=== PATIENT | male | born 1945 | race Hispanic/Latino ===

== ENCOUNTER 2025-02-10 09:23 | Outpatient (CLI) | payer MEDICARE | END 2025-02-10 09:24 | disposition home or self-care (01) | LOC: CSHSLEEP 09:23 | PROVIDERS: ATTEND Family Medicine | DX: G47.33 Obstructive sleep apnea (adult) (pediatric) (principal); R53.83 Other fatigue; E66.9 Obesity, unspecified; Z68.30 Body mass index [BMI] 30.0-30.9, adult; G47.00 Insomnia, unspecified | CPT/HCPCS: 95800 ==